=== PATIENT | female | born 1985 | race Caucasian/White ===

== ENCOUNTER 2017-01-15 01:45 | Emergency (ER) | payer MEDICAID ==
[~2017-01-15] VITALS: Ht 157.5 cm; Wt 68.5 kg
[2017-01-15 01:48] VITALS: Ht 157.5 cm; Wt 68.5 kg
[2017-01-15 03:14] LABS: ADD SCAN DIFF NO
[2017-01-15 03:16] LABS: ADD UMIC YES; BASOPHILS % 0.4 % (0.0-2.0); EOSINOPHILS # 0.3 10^3/ul (0.0-0.5); HEMATOCRIT 38.7 % (37.0-47.0); HEMOGLOBIN 12.5 g/dl (12.0-16.0); LYMPHOCYTES # 2.6 10^3/ul (0.8-2.9); LYMPHOCYTES % 25.5 % (15.0-51.0); MEAN CORPUSCULAR HEMOGLOBIN 28.8 pg (29.0-33.0); MEAN CORPUSCULAR HGB CONC 32.3 g/dl (32.0-37.0); MEAN CORPUSCULAR VOLUME 89.2 fl (82.0-101.0); MONOCYTE # 0.7 10^3/ul (0.3-0.9); MONOCYTES % 6.7 % (0.0-11.0); NEUTROPHIL # 6.4 10^3/ul (1.6-7.5); NEUTROPHILS % 64.3 % (39.0-77.0); PLATELET COUNT 296 10^3/UL (140-415); RED BLOOD COUNT 4.34 10^6/ul (4.20-5.40); RED CELL DISTRIBUTION WIDTH 13.9 % (11.5-14.5); URINE BILIRUBIN (Dip) NEGATIVE (NEGATIVE); URINE BLOOD (Dip) 2+ (NEGATIVE); URINE COLOR LT. YELLOW (YELLOW); URINE GLUCOSE (Dip) NEGATIVE (NEGATIVE); URINE KETONES (Dip) NEGATIVE (NEGATIVE); URINE LEUKOCYTE ESTERASE (Dip) NEGATIVE (NEGATIVE); URINE NITRITE (Dip) NEGATIVE (NEGATIVE); URINE TOTAL PROTEIN (Dip) NEGATIVE (NEGATIVE); URINE UROBILINOGEN (Dip) 0.2 E.U./dL (0.1-1.0)
[2017-01-15 03:34] LABS: SQUAMOUS EPITHELIAL CELL,UR RARE; URINE RBCS 0-2 /HPF ([, 0])
--- NOTE | 2017-01-15 04:33 | RADRPT ---
PROCEDURE: Obstetrical ultrasound. CLINICAL INDICATION: Vaginal bleeding. TECHNIQUE: Multiple sonographic images of the pelvis were obtained utilizing a transabdominal and endovaginal technique. The images were reviewed on a PACS workstation. COMPARISON: None. FINDINGS: The uterus is visualized and measures 9.4 x 6.0 x 6.6 cm. No abnormal uterine mass is identified. T he endometrial echo complex is homogeneous and measures 18.4 mm. No intrauterine is identi fied. There is no abnormal flow to suggest retained products. There is no evidence for free fluid. The right ovary has a normal echotexture and measures 2.9 x 1. 8 x 1.7 cm. The left ovary has a normal echotexture and measures 3.0 x 2.1 x 1.6 cm. There is norm al flow to both ovaries. No adnexal masses are identified. IMPRESSION: Thickened endometrium with no evidence of intrauterine or retained products. Clinical beta -hCG correlation and follow-up is recommended. .Ebenezer Moody MD, Date Time Electronically viewed and signed by .Ebenezer Moody MD, MD on 01/15/2017 04:32 .T/
[2017-01-15] MEDS ORDERED: ACET325T33 PO (05:31)
[2017-01-15] MEDS ORDERED: ONDA4TAB8 PO (05:31)
[2017-01-15] MEDS ORDERED: HYDR-906 PO (05:31)
[2017-01-15] MEDS ORDERED: ONDANSETRON (ODT) 4 MG TAB ODT STA (05:34)
[2017-01-15] MEDS ORDERED: ACETAMINOPHEN 325 MG TAB PO ONE (06:00)
--- NOTE | 2017-01-15 10:24 | ERD ---
ER Documentation Chief Complaint Date/Time DATE: 01/15/17 TIME: 10:09 Chief Complaint 6 wks , vag bleeding x 4 days HPI This is a 31 year old female who is 6 weeks , presents to the ED with vaginal bleed and lower abdominal and back pain for 2 days. Pt has passed clots and bright red blood for 4 pads per day. Pt describes the pain as gradual and intermittent. 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 Pt is with both vaginal deliveries and LMP was Nov 13. Pt does not take any medications. Denies trauma, fever, nausea, vomiting, chest pain, dysuria, diarrhea or constipation. No recent sick contacts or foreign travel. ROS All systems reviewed and are negative except as per history of present illness. Medications Home Meds Active Scripts Hydrocodone/Acetaminophen (Alvo 5-325 Tablet) 1 Each Tablet, 1 TAB PO Q6H Y for PAIN, #10 TAB Prov:JESSE MORRELL 01/15/17 Ondansetron Hcl* (Zofran*) 4 Mg Tablet, 4 MG PO Q6H for NAUSEA AND/OR VOMITING, #30 TAB Prov:JESSE MORRELL 01/15/17 Acetaminophen* (Tylenol*) 325 Mg Tablet, 2 TAB PO Q6 Y for PAIN AND OR ELEVATED TEMP, #20 TAB Prov:JESSE MORRELL 01/15/17 Allergies Allergies: Coded Allergies: No Known Allergy (Unverified , 10/23/14) PMhx/Soc Medical and Surgical Hx: pt denies Medical Hx, pt denies Surgical Hx Hx Alcohol Use: No Hx Substance Use: No Hx Tobacco Use: No Smoking Status: Never smoker Physical Exam Vitals Vital Signs Date Time Temp Pulse Resp B/P Pulse Ox O2 Delivery O2 Flow Rate FiO2 01/15/17 01:48 98.3 79 20 112/63 100 Physical Exam Physical Exam CONST: Well-developed, well-nourished, in no acute distress. Nontoxic in appearance. HEENT: Atraumatic. Normal conjunctiva. EOM intact. TM intact. External ear is normal. Clear oropharnyx without erythema. No uvular deviation. Moist mucous membranes. Supple neck. No meningismus. No submandibular induration. RESP: Clear to auscultation bilaterally. No wheezing. CARDIO: Regular rate and rhythm, no murmurs. ABD: Diffuse tenderness on the lower abdomen that radiates to the back. Normal bowel sounds. No guarding or rigidity. No peritoneal signs. SKIN: No petechiae or rashes. BACK: No midline or flank tenderness. EXT: No cyanosis or edema. Distal pulses equal and bilateral. NEURO: Awake and alert, appropriate for age. 5/5 strength in all extremities. Normal speech. Steady gait. Result Diagram: 01/15/17 0300 Results 24 hrs Laboratory Tests Test 01/15/17 03:00 White Blood Count 10.010^3/ul Red Blood Count 4.3410^6/ul Hemoglobin 12.5g/dl Hematocrit 38.7% Mean Corpuscular Volume 89.2fl Mean Corpuscular Hemoglobin 28.8pg Mean Corpuscular Hemoglobin Concent 32.3g/dl Red Cell Distribution Width 13.9% Platelet Count 20891^3/UL Mean Platelet Volume 11.0fl Neutrophils % 64.3% Lymphocytes % 25.5% Monocytes % 6.7% Eosinophils % 3.0% Basophils % 0.4% Nucleated Red Blood Cells % 0.0/100WBC Neutrophils # 6.410^3/ul Lymphocytes # 2.610^3/ul Monocytes # 0.710^3/ul Eosinophils # 0.310^3/ul Basophils # 0.010^3/ul Nucleated Red Blood Cells # 0.010^3/ul Urine Color LT. YELLOW Urine Clarity CLEAR Urine pH 6.5 Urine Specific [place] <=1.005 Urine Ketones NEGATIVE Urine Nitrite NEGATIVE Urine Bilirubin NEGATIVE Urine Urobilinogen 0.2 E.U./dL Urine Leukocyte Esterase NEGATIVE Urine Microscopic RBC 0-2/HPF Urine Microscopic WBC NONE SEEN/HPF Urine Squamous Epithelial Cells RARE Urine Hemoglobin 2+ Urine Glucose NEGATIVE% Urine Total Protein NEGATIVE Beta HCG, Quantitative 11705.0mIU/ml Current Medications Medications (Trade) Dose Ordered Sig/Deepa Route PRN Reason Start Time Stop Time Status Last Admin Dose Admin Acetaminophen (Tylenol Tab) 650 mg ONCE ONCE PO 01/15/17 06:00 01/15/17 06:01 DC 01/15/17 05:46 Ondansetron HCl (Zofran Odt) 4 mg ONCE STAT ODT 01/15/17 05:34 01/15/17 05:35 DC 01/15/17 05:46 PROCEDURE: Obstetrical ultrasound. CLINICAL INDICATION: Vaginal bleeding. TECHNIQUE: Multiple sonographic images of the pelvis were obtained utilizing a transabdominal and endovaginal technique. The images were reviewed on a PACS workstation. COMPARISON: None. FINDINGS: The uterus is visualized and measures 9.4 x 6.0 x 6.6 cm. No abnormal uterine mass is identified. The endometrial echo complex is homogeneous and measures 18.4 mm. No intrauterine is identified. There is no abnormal flow to suggest retained products. There is no evidence for free fluid. The right ovary has a normal echotexture and measures 2.9 x 1.8 x 1.7 cm. The left ovary has a normal echotexture and measures 3.0 x 2.1 x 1.6 cm. There is normal flow to both ovaries. No adnexal masses are identified. IMPRESSION: Thickened endometrium with no evidence of intrauterine or retained products. Clinical beta-hCG correlation and follow-up is recommended. .Ebenezer Moody MD, MD Date Time Electronically viewed and signed by .Ebenezer Moody MD, on 01/15/2017 04:32 Procedures/[facility] EMERGENCY DEPARTMENT COURSE/MEDICAL DECISION MAKING This is a 31 year old female who comes to the emergency room secondary to complaints of vaginal bleeding and lower abdominal/back pain x2 days. The patient was given tylenol and zofran in the department. On re-evaluation, the patient's symptoms improved. CBC, beta HCG [place] [address] with +2 blood on urine. Pt is not anemic and does not require transfusion. US OB was ordered and was interpreted by a radiologist. Results shows thickened endometrium with no evidence of intrauterine or retained products. Given the US result and beta HCG level, I suspect that the patient had a miscarriage/complete . Serial HCG follow-up is recommended. My primary diagnosis is vaginal bleed. Secondary diagnosis abdominal pain Differential diagnoses considered but not limited to normal IUP, complete , ovarian torsion, UTI, ectopic . Pt is hemodynamically stable upon reassessment. There are no new complaints during the ED course. The patient was discharged for outpatient management with a prescription for norco, tylenol and zofran. The patient was advised to followup with her [employer] in 2 days for serial HCG draw. Pt was also instructed and to return to the Emergency Department if there are any new or worsening symptoms. The patient understood and agreed with the diagnosis, treatment and plan. Patient is stable for discharge at this time. Departure Diagnosis: Primary Impression: Vaginal bleeding Additional Impression: Abdominal pain Abdominal location: lower abdomen, unspecified Qualified Code: R10.30 - Lower abdominal pain Condition: Stable Patient Instructions: Abdominal Pain, Early Referrals: [facility] Usted se minor hecho un examen mdico de control que le indica que no est en ron condicin que requiera tratamiento urgente en el Departamento de Emergencia. Un estudio ms profundo y el tratamiento de desir condicin pueden esperar sin ningn riesgo hasta que usted sea atendida/o en el consultorio de desir mdico o ron cl lacey. Es responsabilidad suya arreglar ron stacie para el seguimiento del gio. MANEJO DE CONDICIONES NO URGENTES EN EL FUTURO 1) Si usted tiene un mdico de atencin primaria: Usted debera llamar a desir mdico de atencin primaria antes de venir al departamento de emergencia. Despus de las horas de consultorio, desir doctor o desir asociado/a est disponible por telfono. El mdico o enfermero de dagoberto en el servicio telefnico puede asesorarle por garcia medio para atender el problema, o gio contrario se puede programar ron stcaie. 2) Si usted no tiene un mdico de atencin primaria: Llame al mdico o clnica de referencia que aparece abajo mary las horas de consultorio para hacer ron stacie para que le vean. CLINICAS: [facility] 325 [phone] [address] [facility] 969 [phone] [address] [facility] 269 [phone] [facility] [phone] [address] [facility] [place] [id number] [phone] [facility]. [phone] [address] [facility]. [facility] () Usmegha se minor hecho un examen mdico de control que le indica que no est en ron condicin que requiera tratamiento urgente en el Departamento de Emergencia. Un estudio ms profundo y el tratamiento de desir condicin pueden esperar sin ningn riesgo hasta que usted sea atendida/o en el consultorio de desir mdico o ron cl lacey. Es responsabilidad suya arreglar ron stacie para el seguimiento del gio. MANEJO DE CONDICIONES NO URGENTES EN EL FUTURO 1) Si usted tiene un mdico de atencin primaria: Usted debera llamar a desir mdico de atencin primaria antes de venir al departamento de emergencia. Despus de las horas de consultorio, desir doctor o desir asociado/a est disponible por telfono. El mdico o enfermero de dagoberto en el servicio telefnico puede asesorarle por garcia medio para atender el problema, o gio contrario se puede programar ron stacie. 2) Si usted no tiene un mdico de atencin primaria: Llame al mdico o condado institucions de referencia que aparece abajo mary las horas de consultorio para hacer ron stacie para que le vean. SI USTED NO PUEDE PAGAR PARA SAUD UN MEDICO puede ir a: [facility] [address] [place] [address] [facility] [address] [place] [address] [facility] [address] [place] [address] [facility] [address] [place] [address] [employer] [address] [facility] [address] [place] [address] OFFICE FAX , JUDITH [address] [place] [address] [address], [place] [address] [place] [address] [address] MOHR, [facility] [address], [facility] [address] [address] [facility] [address] [place] [address] [facility] [address] [place] [address] [facility] [address] [address] KENNEY, DESIREE [address], [facility] [address] [address] HUTCHINSON, CARLOS [address] [facility]. [address], [place] [address] [address] MONREAL, FARID [address] [place], [place] [id number] Additional Instructions: Saud a un especialista en Obstetricia y Ginecologa en 2 jewell y la solicitud de ivette beta HCG dibujar Llame a desir mdico de atencin primaria maana para hacer ron stacie mary los pr ximos jewell 1-2. Volver a ED para la aparicin o empeoramiento de sntomas [facility] todos los medicamentos daquan lo indique. JESSE MORRELL Jan 15, 2017 10:19
== END 2017-01-15 05:53 | disposition home or self-care (01) ==
LOC: FTE 01:45
DX: O20.9 Hemorrhage in early pregnancy, unspecified (principal); O26.891 Other specified pregnancy related conditions, first trimester; R10.30 Lower abdominal pain, unspecified; Z3A.01 Less than 8 weeks gestation of pregnancy
CPT/HCPCS: 76801; 76817; 81001; 84702; 85025; 86900; 86901; Z7610; 36415; 81003

== ENCOUNTER 2017-01-18 22:17 | Emergency (ER) | payer MEDICAID ==
[~2017-01-18] VITALS: Ht 165.1 cm; Wt 67.5 kg
[~2017-01-18 22:17] MED LIST: ACET325T33 PO; HYDR-906 PO; ONDA4TAB8 PO
[2017-01-18 22:23] VITALS: Ht 165.1 cm; Wt 67.5 kg
[2017-01-18] MEDS ORDERED: POLY17PO6 PO (23:42)
--- NOTE | 2017-01-18 23:51 | ERD ---
ER Documentation Chief Complaint Date/Time DATE: 01/18/17 TIME: 23:45 Chief Complaint constipation after taking norco HPI 31-year-old female presents here in emergency department for complaints of constipation after taking Dayton. Patient denies any abdominal pain, nausea or vomiting. Patient is taking Narco because of present miscarriage. Patient last bowel movement was 2 days ago, was hard stools, stridor or should defecate but is having trouble pushing out the stool. Patient denies any abdominal pain or flank pain at this time. Patient denies any rectal pain. Patient denies any fever or chills. ROS All systems reviewed and are negative except as per history of present illness. Medications Home Meds Active Scripts Polyethylene Glycol* (Miralax*) 17 Gm Powd.pack, 17 GM PO DAILY, #7 Prov:BELEN VALDIVIA NP 01/18/17 Hydrocodone/Acetaminophen (Dayton 5-325 Tablet) 1 Each Tablet, 1 TAB PO Q6H Y for PAIN, #10 TAB Prov:JESSE MORRELL 01/15/17 Ondansetron Hcl* (Zofran*) 4 Mg Tablet, 4 MG PO Q6H for NAUSEA AND/OR VOMITING, #30 TAB Prov:JESSE MORRELL 01/15/17 Acetaminophen* (Tylenol*) 325 Mg Tablet, 2 TAB PO Q6 Y for PAIN AND OR ELEVATED TEMP, #20 TAB Prov:JESSE MORRELL 01/15/17 Allergies Allergies: Coded Allergies: No Known Allergy (Unverified , 10/23/14) PMhx/Soc Medical and Surgical Hx: pt denies Medical Hx, pt denies Surgical Hx Hx Alcohol Use: No Hx Substance Use: No Hx Tobacco Use: No FmHx Family History: No coronary disease, No diabetes, No other Physical Exam Vitals Vital Signs Date Time Temp Pulse Resp B/P Pulse Ox O2 Delivery O2 Flow Rate FiO2 01/18/17 22:23 99.0 84 20 107/59 98 Physical Exam GENERAL: The patient is well developed and appropriate for usual state of health, in no apparent distress. CHEST: Clear to auscultation bilaterally. There are no rales, wheezes or rhonchi. HEART: Regular rate and rhythm. No murmurs, clicks, rubs or gallops. No S3 or S4. ABDOMEN: Soft, nontender and nondistended. Good bowel sounds. No rebound or guarding. No gross peritonitis. No gross organomegaly or masses. No Pizano sign or McBurney point tenderness. BACK: No midline or flank tenderness. EXTREMITIES: Equal pulses bilaterally. There is no peripheral clubbing, cyanosis or edema. No focal swelling or erythema. Full range of motion. Grossly neurovascularly intact. NEURO: Alert and oriented. Cranial nerves 2-12 intact. Motor strength in all 4 extremities with 5/5 strength. Sensation grossly intact. Normal speech and gait. SKIN: There is no apparent rash or petechia. The skin is warm and dry. HEMATOLOGIC AND LYMPHATIC: There is no evidence of excessive bruising or lymphedema. No gross cervical, axillary, or inguinal lymphadenopathy. Procedures/MDM Medical Decision Making: Patient symptoms is likely consistent with constipation. No suspicion of bowel obstruction, last bowel movement was 2 days ago, not vomiting, she does not complain of abdominal pain. There is low suspicion for abdominal emergencies at this time. Patients abdominal exam is normal at this time. Radiology exam is not indicated at this time. There is low suspicion for appendicitis, cholecystitis, abdominal aortic aneurysms or peritonitis at this time. There is low suspicion for sepsis. Patient appears well and is hemodynamically stable. Disposition: Home. Condition: Stable Prescription MiraLAX Instructions: Patient is advised to take medications as prescribed. Patient is advised to rest, increase fluid intake and do high fiber diet for next 1-2 days and progress as tolerated. Patient is advised that if symptoms are worse, severe abdominal pain, uncontrolled vomiting, high fever, severe flank pain, worst signs and symptoms, to return to the emergency department immediately. Otherwise, patient can follow up with primary care doctor in 5-7 days. Departure Diagnosis: Primary Impression: Constipation Constipation type: unspecified constipation type Qualified Code: K59.00 - Constipation, unspecified constipation type Condition: Stable Patient Instructions: Constipation (Adult) BELEN VALDIVIA NP Jan 18, 2017 23:51
== END 2017-01-19 00:05 | disposition home or self-care (01) ==
LOC: FTE 22:17
DX: K59.00 Constipation, unspecified (principal)
CPT/HCPCS: 99283

== ENCOUNTER 2017-04-03 18:00 | Emergency (ER) | payer MEDICAID ==
[~2017-04-03] VITALS: Ht 157.5 cm; Wt 79.0 kg
[~2017-04-03 18:00] MED LIST changes: +POLY17PO6 PO
[2017-04-03 18:08] VITALS: Ht 157.5 cm; Wt 79.0 kg
[2017-04-03] MEDS ORDERED: SOD CHLORIDE 0.9% 1,000 ML IV STA (18:33)
[2017-04-03] MEDS ORDERED: morphine 4 MG/ML VIAL IV STA (18:33)
[2017-04-03] MEDS ORDERED: ONDANSETRON 4 MG INJ IV STA ×2 (18:33→18:55)
[2017-04-03 18:49] LABS: ADD SCAN DIFF NO
[2017-04-03 18:51] LABS: BASOPHILS % 0.2 % (0.0-2.0); EOSINOPHILS # 0.1 10^3/ul (0.0-0.5); EOSINOPHILS % 0.6 % (0.0-7.0); HEMATOCRIT 38.1 % (37.0-47.0); HEMOGLOBIN 12.9 g/dl (12.0-16.0); LYMPHOCYTES # 1.6 10^3/ul (0.8-2.9); MEAN CORPUSCULAR HEMOGLOBIN 28.5 pg (29.0-33.0); MEAN CORPUSCULAR HGB CONC 33.9 g/dl (32.0-37.0); MEAN CORPUSCULAR VOLUME 84.1 fl (82.0-101.0); MEAN PLATELET VOLUME 11.4 fl (7.4-10.4); MONOCYTE # 0.6 10^3/ul (0.3-0.9); MONOCYTES % 5.6 % (0.0-11.0); NEUTROPHIL # 8.2 10^3/ul (1.6-7.5); NEUTROPHILS % 78.5 % (39.0-77.0); PLATELET COUNT 290 10^3/UL (140-415); RED BLOOD COUNT 4.53 10^6/ul (4.20-5.40); RED CELL DISTRIBUTION WIDTH 13.4 % (11.5-14.5); WHITE BLOOD COUNT 10.4 10^3/ul (4.8-10.8)
[2017-04-03] MEDS ORDERED: HYDROmorphONE 1 MG/ML SYG IV STA (18:55)
[2017-04-03 19:11] LABS: ALBUMIN 5.1 g/dl (3.3-4.9); ALBUMIN/GLOBULIN RATIO 1.37; BILIRUBIN,INDIRECT 0.8 mg/dl (0-1.1); BILIRUBIN,TOTAL 0.8 mg/dl (0.2-1.3); CALCIUM 10.1 mg/dl (8.4-10.2); CREATININE 0.66 mg/dl (0.44-1.00); POTASSIUM 3.6 mmol/L (3.5-5.1); TOTAL PROTEIN 8.8 g/dl (6.1-8.1)
--- NOTE | 2017-04-03 19:15 | ERD ---
ER Documentation Chief Complaint Date/Time DATE: 04/03/17 TIME: 19:13 Chief Complaint AP SINCE THIS AM, HYPERVENTILATING HPI 31-year-old female otherwise healthy comes emergency department with right lower quadrant abdominal pain and pelvic pain that started this morning at approximately 10 AM. She complains of severe pain that is localized in the right lower quadrant, she states that it gradually got worse and up by 2 PM it became severe. She reports it is a pressure-like feeling, nonradiating, nothing makes it better. She denies any fevers, chills, vomiting. ROS All systems reviewed and are negative except as per history of present illness. Medications Home Meds Active Scripts Ciprofloxacin Hcl* (Ciprofloxacin Hcl*) 500 Mg Tablet, 500 MG PO BID for 14 Days , TAB Prov:PER BHATTI PA-C 04/03/17 Docusate Sodium* (Colace*) 100 Mg Capsule, 100 MG PO TID, #30 CAP Prov:PER BHATTI PA-C 04/03/17 Ibuprofen* (Motrin*) 600 Mg Tab, 600 MG PO Q6, #30 TAB Prov:PER BHATTI PA-C 04/03/17 Hydrocodone/Acetaminophen (Placedo 5-325 Tablet) 1 Each Tablet, 1 TAB PO Q6H Y for PAIN, #7 TAB Prov:PER BHATTI PA-C 04/03/17 Tamsulosin Hcl* (Flomax*) 0.4 Mg Cap.er.24h, 0.4 MG PO BID, #30 CAP Prov:PER BHATTI PA-C 04/03/17 Polyethylene Glycol* (Miralax*) 17 Gm Powd.pack, 17 GM PO DAILY, #7 Prov:BELEN VALDIVIA NP 01/18/17 Hydrocodone/Acetaminophen (Placedo 5-325 Tablet) 1 Each Tablet, 1 TAB PO Q6H Y for PAIN, #10 TAB Prov:JESSE MORRELL 01/15/17 Ondansetron Hcl* (Zofran*) 4 Mg Tablet, 4 MG PO Q6H for NAUSEA AND/OR VOMITING, #30 TAB Prov:JESSE MORRELL 01/15/17 Acetaminophen* (Tylenol*) 325 Mg Tablet, 2 TAB PO Q6 Y for PAIN AND OR ELEVATED TEMP, #20 TAB Prov:JESSE MORRELL 01/15/17 Allergies Allergies: Coded Allergies: No Known Allergy (Unverified , 1/25/15) PMhx/Soc Medical and Surgical Hx: pt denies Medical Hx, pt denies Surgical Hx History of Surgery: No ([facility].) Anesthesia Reaction: No Hx Neurological Disorder: No Hx Respiratory Disorders: No Hx Cardiac Disorders: No Hx Psychiatric Problems: No Hx Miscellaneous Medical Probl: No ( miscarriage JANUARY 2017) Hx Alcohol Use: No Hx Substance Use: No Hx Tobacco Use: No Smoking Status: Never smoker Physical Exam Vitals Vital Signs Date Time Temp Pulse Resp B/P Pulse Ox O2 Delivery O2 Flow Rate FiO2 04/03/17 18:08 99.2 64 18 128/78 99 Physical Exam General: Well-developed, well-nourished. The patient appears in no acute distress. HEENT: Head is normocephalic, atraumatic. No scleral icterus. Neck: Supple. Nontender. Lungs: Clear to auscultation. Normal air movement. Heart: Regular rate and rhythm. S1 and S2 are normal. No murmurs, gallops, or rubs. Abdomen: Soft, significant tenderness with palpation on the right lower quadrant , nondistended. Bowel sounds are normoactive. Extremities: No clubbing or cyanosis. Normal pulses. Moving extremities x 4. No weakness. Neurologic: Alert and oriented 3. No focal deficits. Skin: Normal turgor. No rash or lesions. Result Diagram: 04/03/17184404/03/171844 Results 24 hrs Laboratory Tests Test 04/03/17 18:45 04/03/17 19:00 White Blood Count 10.410^3/ul Red Blood Count 4.5310^6/ul Hemoglobin 12.9g/dl Hematocrit 38.1% Mean Corpuscular Volume 84.1fl Mean Corpuscular Hemoglobin 28.5pg Mean Corpuscular Hemoglobin Concent 33.9g/dl Red Cell Distribution Width 13.4% Platelet Count 00264^3/UL Mean Platelet Volume 11.4fl Neutrophils % 78.5% Lymphocytes % 15.0% Monocytes % 5.6% Eosinophils % 0.6% Basophils % 0.2% Nucleated Red Blood Cells % 0.0/100WBC Neutrophils # 8.210^3/ul Lymphocytes # 1.610^3/ul Monocytes # 0.610^3/ul Eosinophils # 0.110^3/ul Basophils # 0.010^3/ul Nucleated Red Blood Cells # 0.010^3/ul Sodium Level 135mmol/L Potassium Level 3.6mmol/L Chloride Level 101mmol/L Carbon Dioxide Level 26mmol/L Anion Gap 12 Blood Urea Nitrogen 14mg/dl Creatinine 0.66mg/dl Glucose Level 119mg/dl Calcium Level 10.1mg/dl Total Bilirubin 0.8mg/dl Direct Bilirubin 0.00mg/dl Indirect Bilirubin 0.8mg/dl Aspartate Amino Transf (AST/SGOT) 21IU/L Alanine Aminotransferase (ALT/SGPT) 25IU/L Alkaline Phosphatase 80IU/L Total Protein 8.8g/dl Albumin 5.1g/dl Globulin 3.70g/dl Albumin/Globulin Ratio 1.37 Lipase 86U/L Urine Color MARTIN Urine Clarity SLIGHTLY CLOUDY Urine pH 9.0 Urine Specific Salix 1.019 Urine Ketones 1+mg/dL Urine Nitrite POSITIVEmg/dL Urine Bilirubin NEGATIVEmg/dL Urine Urobilinogen 2+mg/dL Urine Leukocyte Esterase NEGATIVELeu/ul Urine Microscopic RBC > 182/HPF Urine Microscopic WBC 0/HPF Urine Squamous Epithelial Cells FEW/HPF Urine Mucus FEW/HPF Urine Hemoglobin 3+mg/dL Urine Glucose NEGATIVEmg/dL Urine Total Protein 2+mg/dl Current Medications Medications (Trade) Dose Ordered Sig/Deepa Route PRN Reason Start Time Stop Time Status Last Admin Dose Admin Sodium Chloride (NS) 1,000 ml @ 1,000 mls/hr Q1H STAT IV 04/03/17 18:33 04/03/17 19:32 DC 04/03/17 18:52 Morphine Sulfate (morphine) 4 mg ONCE STAT IV 04/03/17 18:33 04/03/17 18:35 DC 04/03/17 18:53 Ondansetron HCl (Zofran Inj) 4 mg ONCE STAT IV 04/03/17 18:33 04/03/17 18:35 DC 04/03/17 18:52 Hydromorphone HCl (Dilaudid) 1 mg ONCE STAT IV 04/03/17 18:55 04/03/17 18:56 DC 04/03/17 19:11 Ondansetron HCl (Zofran Inj) 4 mg ONCE STAT IV 04/03/17 18:55 04/03/17 18:56 DC 04/03/17 19:10 Tamsulosin HCl (Flomax) 0.4 mg ONCE ONCE PO 04/03/17 20:30 04/03/17 20:31 DC 04/03/17 20:41 Ketorolac Tromethamine (Toradol) 30 mg ONCE STAT IV 04/03/17 20:08 04/03/17 20:09 DC 04/03/17 20:24 DIAGNOSTIC IMAGING REPORT Patient: CLIFFORD PAYAN : 1985 Age: 31 Sex: F MR #: [id number] DOS: 04/03/17 1833 Ordering MD: PER BHATTI PA-C Location: [facility] Room/Bed: PROCEDURE: US Pelvis. CLINICAL INDICATION: 31-year-old female with right-sided pelvic pain. TECHNIQUE: Multiple sonographic images of the pelvis were obtained utilizing a transabdominal and endovaginal technique. The images were reviewed on a PACS workstation. COMPARISON: CT scan abdomen pelvis April 03, 2017. FINDINGS: The uterus is visualized and measures a 0.7 cm sagittal by 4.7 cm AP by 5.6 cm transverse. The endometrial echo complex is normal and measures 4.1 mm. There is no evidence for free fluid. The right ovary has a normal echotexture and measures 3.2 x 1.6 by 2.1 cm . The left ovary has a normal echotexture and measures 3.2 x 2.2 by 2.8 cm. No free fluid is noted in the pelvis. No adnexal masses are noted. There is normal blood flow on Doppler imaging to both ovaries. IMPRESSION: Unremarkable pelvic ultrasound. RPTAT:AAJJ Physician Mal Date Time Electronically viewed and signed by Physician Mal on 04/03/2017 20:07 JM/ CC: PER BHATTI PA-C DIAGNOSTIC IMAGING REPORT Patient: CLIFFORD PAYAN : 1985 Age: 31 Sex: F MR #: [id number] DOS: 04/03/17 1833 Ordering MD: PER BHATTI PA-C Location: [facility] Room/Bed: PROCEDURE: CT abdomen and pelvis without IV contrast. CLINICAL INDICATION: Right pelvic pain TECHNIQUE: CT scan of the abdomen and pelvis without contrast was performed on the [employer] volumetric [address] scanner. The patient was scanned without intravenous contrast. Coronal and sagittal reformatted images were obtained from the axial source images. The CTDI vol is 10.82 mGy and the DLP is 589.8 mGy -cm. COMPARISON: None. FINDINGS: CT abdomen: The lung bases are clear. The heart size is not enlarged and is without pericardial thickening or effusion. The liver is normal in size and density and is without focal mass or intrahepatic biliary dilatation. The spleen is normal in size and homogeneous in density. The stomach is grossly unremarkable. The pancreas as visualized is normal. The gallbladder and biliary tree are unremarkable and there is no evidence for common bile duct dilatation. The adrenal glands are symmetric and normal. The kidneys are normal in size. Moderate right hydroureteronephrosis is seen which appears to be secondary to a 4 mm obstructing calculus in the distal right ureter. Small nonobstructing calculi in the lower pole of the right kidney is also seen measuring 1-2 mm in size. No left renal calculus or left-sided obstructive uropathy or mass lesion is seen. The aorta is of normal in caliber. There is no retroperitoneal lymphadenopathy. The rickey hepatis region is clear. The large bowel is stool- filled. The small and large bowel and mesentery, as visualized, are otherwise unremarkable. The normal appendix is identified. CT pelvis: The pelvic organs are normal. The pelvic sidewalls and inguinal regions are clear. No pelvic mass, lymphadenopathy, or free fluid is seen. No acute inflammation is seen. The urinary bladder is within normal limits. The surrounding osseous structures are unremarkable. No osteolytic or osteoblastic lesion is detected. IMPRESSION: 1. Moderate right hydroureteronephrosis which appears to be secondary to a 4 mm obstructing calculus in the distal right ureter. 2. Small nonobstructing right renal calculi. 3. Stool filled large bowel. RPTAT: HPNM Matt Vega Physician Date Time Electronically viewed and signed by Matt Vega Physician on 04/03/2017 19 :52 / CC: PER BHATTI PA-C Procedures/[facility] ED course: Patient had an IV line established, she was given morphine 4 mg, Zofran 4 mg IV and a fluid bolus of normal saline 1 L. Patient did not have any improvement of pain and therefore was given Dilaudid 1 mg and Zofran 4 mg IV. She stated that she is feeling much better. CT abdomen pelvis shows a kidney stone, and was she was then given Toradol 30 mg IV as well as Flomax by mouth. Reexamination of the patient showed that she was standing, smiling and free of any pain. Medical decision making: This is a 31-year-old female presents with acute right- sided pelvic pain, patient's abdominal pain can be explained by a 4 mm kidney stone in the UVJ, with moderate hydronephrosis. She also has renal stones that are not causing any symptoms. Patient's workup included labs and a urine, urine does show nitrite positive urine. However she does not have any leukocytosis, febrile illness. She does not have a systemic findings for infection. This was discussed with my attending physician who agrees that the patient can be treated outpatient with Cipro. She is to follow-up with the urologist, she was given information to follow-up with referrals. Departure Diagnosis: Primary Impression: Ureterolithiasis Additional Impression: UTI (urinary tract infection) Condition: Good PER BHATTI PA-C Apr 03, 2017 19:15
[2017-04-03 19:35] LABS: ADD UMIC YES; UR ASCORBIC ACID NEGATIVE (NEGATIVE); UR BILIRUBIN (Dip) NEGATIVE (NEGATIVE); UR BLOOD (Dip) 3+ mg/dL (NEGATIVE); UR CLARITY SLIGHTLY CLOUDY (CLEAR); UR COLOR AMBER (YELLOW); UR GLUCOSE (Dip) NEGATIVE (NEGATIVE); UR KETONES (Dip) 1+ mg/dL (NEGATIVE); UR LEUKOCYTE ESTERASE (Dip) NEGATIVE Leu/ul (NEGATIVE); UR MUCUS FEW /HPF (NONE SEEN); UR NITRITE (Dip) POSITIVE (NEGATIVE); UR RBC > 182 /HPF (0-5); UR SPECIFIC GRAVITY (Dip) 1.019 (1.003-1.030); UR SQUAMOUS EPITHELIAL CELL FEW /HPF (FEW); UR TOTAL PROTEIN (Dip) 2+ mg/dl (NEGATIVE); UR UROBILINOGEN (Dip) 2+ mg/dL (NEGATIVE)
--- NOTE | 2017-04-03 19:52 | RADRPT ---
PROCEDURE: CT abdomen and pelvis without IV contrast. CLINICAL INDICATION: Right pelvic pain TECHNIQUE: CT scan of the abdomen and pelvis without contrast was performed on the [employer] ([employer]) volumetric [address] scanner. The patient was scanned without intravenous contrast. Coronal and sagittal refo rmatted images were obtained from the axial source images. The CTDI vol is 10.82 mGy and the DLP is 589.8 mGy-cm. COMPARISON: None. FINDINGS: CT abdomen: The lung bases are clear. The heart size is not enlarged and is without pericardial thickening or e ffusion. The liver is normal in size and density and is without focal mass or intrahepatic biliary dilatation . The spleen is normal in size and homogeneous in density. The stomach is grossly unremarkable. T he pancreas as visualized is normal. The gallbladder and biliary tree are unremarkable and there is no evidence for common bile duct dilatation. The adrenal glands are symmetric and normal. The kid neys are normal in size. Moderate right hydroureteronephrosis is seen which appears to be secondary to a 4 mm obstructing calculus in the distal right ureter. Small nonobstructing calculi in the low er pole of the right kidney is also seen measuring 1-2 mm in size. No left renal calculus or left- sided obstructive uropathy or mass lesion is seen. The aorta is of normal in caliber. There is no retroperitoneal lymphadenopathy. The rickey hepatis region is clear. The large bowel is stool-filled. The small and large bowel and mesentery, as visua lized, are otherwise unremarkable. The normal appendix is identified. CT pelvis: The pelvic organs are normal. The pelvic sidewalls and inguinal regions are clear. No pelvic mass, lymphadenopathy, or free fluid is seen. No acute inflammation is seen. The urinary bladder is wit hin normal limits. The surrounding osseous structures are unremarkable. No osteolytic or osteoblastic lesion is detect ed. IMPRESSION: 1. Moderate right hydroureteronephrosis which appears to be secondary to a 4 mm obstructing calculu s in the distal right ureter. 2. Small nonobstructing right renal calculi. 3. Stool filled large bowel. RPTAT: HPNM Matt Mogannam, Physician Date Time Electronically viewed and signed by Matt Vega, Physician on 04/03/2017 19:52 /
[2017-04-03] MEDS ORDERED: KETOROLAC 30 MG INJ IV STA (20:08)
--- NOTE | 2017-04-03 20:08 | RADRPT ---
PROCEDURE: US Pelvis. CLINICAL INDICATION: 31-year-old female with right-sided pelvic pain. TECHNIQUE: Multiple sonographic images of the pelvis were obtained utilizing a transabdominal and endovaginal technique. The images were reviewed on a PACS workstation. COMPARISON: CT scan abdomen pelvis April 03, 2017. FINDINGS: The uterus is visualized and measures a 0.7 cm sagittal by 4.7 cm AP by 5.6 cm transverse. The endom etrial echo complex is normal and measures 4.1 mm. There is no evidence for free fluid. The right ov mira has a normal echotexture and measures 3.2 x 1.6 by 2.1 cm . The left ovary has a normal echotex ture and measures 3.2 x 2.2 by 2.8 cm. No free fluid is noted in the pelvis. No adnexal masses are noted. There is normal blood flow on Doppler imaging to both ovaries. IMPRESSION: Unremarkable pelvic ultrasound. RPTAT:AAJJ Physician Mal Date Time Electronically viewed and signed by Physician Mal on 04/03/2017 20:07 ELIZABETH/
[2017-04-03] MEDS ORDERED: IBUP-1542 PO (20:10)
[2017-04-03] MEDS ORDERED: DOCU-144 PO (20:10)
[2017-04-03] MEDS ORDERED: TAMS-14 PO (20:10)
[2017-04-03] MEDS ORDERED: HYDR-906 PO (20:10)
[2017-04-03] MEDS ORDERED: CIPR500T4 PO (20:21)
[2017-04-03] MEDS ORDERED: TAMSULOSIN (SR) 0.4 MG CAP PO ONE (20:30)
== END 2017-04-03 20:47 | disposition home or self-care (01) ==
LOC: FTE 18:00
DX: N20.1 Calculus of ureter (principal); N39.0 Urinary tract infection, site not specified; R10.2 Pelvic and perineal pain
CPT/HCPCS: 36415; 74176; 76830; 76856; 80053; 81001; 83690; 85025; 96374; 96375; 96376; J1170; J1885; J2270; J2405; J7030; Z7502; Z7610

== ENCOUNTER 2018-12-27 12:34 | Inpatient (IN) | payer MEDICAID ==
[~2018-12-27] VITALS: Ht 144.8 cm; Wt 78.0 kg
[~2018-12-27 12:34] MED LIST changes: +CIPR500T4 PO; +DOCU-144 PO; +HYDR-4011 PO; -HYDR-906 PO; +IBUP-1542 PO; +TAMS-14 PO
--- NOTE | 2018-12-27 12:35 | NSTRPT ---
NST Information Datetime Report Generated by CPN: 12/27/2018 12:35 Datetime: 12/17/2018 09:26 NST Information EGA: 38.2 Test Number: 8 Time on Monitor: 12/17/2018 09:55 Time off Monitor: 12/17/2018 10:21 NST Duration (Min): 26 Reason for NST: Low NAEEM Test and Monitor Explained: Monitor Explained; Test Explained; Verbalized Understanding Pulse: 82 Resp: 18 SBP: 109 DBP: 58 Test Evaluation NST Interventions: None Patient States Movement: Present Contraction Frequency: NONE FHR Baseline : 135 Variability: Moderate 6-25bpm Accelerations: 15X15 Decelerations: None FHR Category: Category I NST Results: Reactive Comments: to US VASYL 13. CEPHALIC Electronically Signed By E-Signature: with User ID: [id number] Datetime: 12/14/2018 09:13 NST Information EGA: 37.6 NST Duration (Min): 22 Datetime: 12/03/2018 09:20 NST Information EGA: 36.2 NST Duration (Min): 33 Datetime: 11/30/2018 09:13 NST Information EGA: 35.6 NST Duration (Min): 28 Datetime: 11/20/2018 09:19 NST Information EGA: 34.3 NST Duration (Min): 30 Datetime: 11/18/2018 09:04 NST Information EGA: 34.1 NST Duration (Min): 25 Datetime: 11/13/2018 09:25 NST Information EGA: 33.3 NST Duration (Min): 37 Datetime: 11/10/2018 10:52 NST Information EGA: 33.0 NST Duration (Min): 30
[2018-12-27 12:42] VITALS: Ht 144.8 cm; Wt 78.0 kg
[2018-12-27] MEDS ORDERED: PREN-93 PO (12:43)
[2018-12-27] MEDS ORDERED: OXYTOCIN 30 UNITS/LR 500 ML IV PRN (15:00)
[2018-12-27] MEDS ORDERED: CARBOPROST 250 MCG INJ IM PRN (15:00)
[2018-12-27] MEDS ORDERED: MISOPROSTOL 200 MCG TAB PR PRN (15:00)
[2018-12-27] MEDS ORDERED: BUTORPHANOL 2 MG INJ IV PRN (15:00)
[2018-12-27] MEDS ORDERED: LIDOCAINE 1% (MPF) 30 ML INJ INJ PRN (15:00)
[2018-12-27] MEDS ORDERED: METHYLERGONOVINE 0.2 MG INJ IM PRN (15:00)
[2018-12-27] MEDS ORDERED: OXYTOCIN 30 UNITS/LR 500 ML IV SCH ×3 (15:00)
[2018-12-27] MEDS: LACTATED RINGER'S 1,000 ML IV SCH ×3 (15:25→20:16)
--- NOTE | 2018-12-27 15:41 | PREAC ---
Date/Time of Note Date/Time of Note DATE: 12/27/18 TIME: 15:40 Anesthesia Eval and Record Evaluation Time Pre-Procedure Interview DATE: 12/27/18 TIME: 15:40 Age 33 Sex female NPO: 8 hrs Preoperative diagnosis Planned procedure labor epidural Past Medical History Past Medical History: None Surgery & Anesthesia Issues No known issue Meds Anticoagulation: No Beta Oh within 24 hr: No Reason Beta Oh not given: Pt. not on B-Oh Reported Medications Vit No.124/Iron/FA ( Vitamin Tablet) 1 Each Tablet, 1 EACH PO, TAB 12/27/18 Current Medications Lactated Ringer's 1,000 ml @ 125 mls/hr Q8H IV Last administered on 12/27/18at 15:25; Admin Dose 125 MLS/HR; Start 12/27/18 at 14:42 Butorphanol Tartrate (Stadol) 2 mg Q2H PRN IV .PAIN; Start 12/27/18 at 15:00 Lidocaine (Xylocaine 1% (Mpf)) 30 ml ONCE PRN INJ .EPISIOTOMY; Start 12/27/18 at 15:00 Oxytocin/Lactated Ringer's 500 ml @ 500 mls/hr ONCE POST IV ; Start 12/27/18 at 15:00 Oxytocin/Lactated Ringer's 500 ml @ 125 mls/hr POST IV ; Start 12/27/18 at 15:00 Oxytocin/Lactated Ringer's 500 ml @ 0 mls/hr ONCE PRN IV .VAGINAL BLEEDING; Start 12/27/18 at 15:00 Methylergonovine Maleate (Methergine) 0.2 mg ONCE PRN IM .VAGINAL BLEEDING; Start 12/27/18 at 15:00 Carboprost Tromethamine (Hemabate) 250 mcg ONCE PRN IM .VAGINAL BLEEDING; Start 12/27/18 at 15:00 Misoprostol (Cytotec) 1,000 mcg ONCE PRN CA .VAGINAL BLEEDING; Start 12/27/18 at 15:00 Oxytocin/Lactated Ringer's 500 ml @ 0 mls/hr FOR AUGMENTATION IV ; Start 9 at 15:00 Meds reviewed: Yes Allergies Coded Allergies: No Known Allergy (Unverified , 12/27/18) Allergies Reviewed: Yes Labs/Studies Labs Reviewed: Reviewed by anesthesiologist Result Diagram: 12/27/18 1444 Laboratory Tests 12/27/18 14:44 test: Positive Pre-procedure Exam Airway: Adequate mouth opening, Adequate thyromental dist Mallampati: Mallampati II Teeth: Normal Lung: Normal Heart: Normal ASA Physical Status ASA physical status: 2 Emergency: None Planned Anesthetic Neuraxial: Epidural Pre-operative Attestations Prior to commencing anesthesia and surgery, the patient was re-evaluated, there was verification of: *The patient's identity *The results of appropriate recent lab work and preoperative vital signs *The above evaluation not changing prior to induction *Anesthetic plan, risk benefits, alternative and complications discussed with patient/family; questions answered; patient/family understands, accepts and wishes to proceed. GEORGE PENA Dec 27, 2018 15:41
[2018-12-27] MEDS ORDERED: ONDANSETRON 4 MG INJ IV PRN (16:00)
[2018-12-27] MEDS ORDERED: FENTAnyl 2MCG/ML-ROPIV 0.2% 100 ML BAG EPI SCH (16:00)
[2018-12-27] MEDS ORDERED: DIPHENHYDRAMINE 50 MG INJ IV PRN (16:00)
[2018-12-27] MEDS ORDERED: HYDROmorphONE 0.5 MG/0.5 ML SYG IV PRN ×2 (16:00)
[2018-12-27] MEDS ORDERED: KETOROLAC 30 MG INJ IV PRN (16:00)
[2018-12-27] MEDS ORDERED: NALOXONE (0.4 MG/ML) INJ IV PRN (16:00)
--- NOTE | 2018-12-27 16:42 | PAC ---
Date/Time of Note Date/Time of Note DATE: 12/27/18 TIME: 16:42 Post-Anesthesia Notes Post-Anesthesia Note Activity: WNL Respiratory function: WNL Cardiovascular function: WNL Mental status: Baseline Pain reasonably controlled: Yes Hydration appropriate: Yes Nausea/Vomiting absent: Yes GEORGE PENA Dec 27, 2018 16:42
[2018-12-27] MEDS ORDERED: MINERAL OIL LIGHT 10 ML VIAL TOP ONE (23:30)
[2018-12-28] MEDS: LACTATED RINGER'S 1,000 ML IV SCH (02:12)
--- NOTE | 2018-12-28 03:20 | LDN ---
Date/Time of Note Date/Time of Note DATE: 12/28/18 TIME: 03:16 Delivery Summary vaccum assit vaginal delivery of male due to profound deceleration down to 50's with marginal abruptio Weeks of Gestation 39w6d Assisted Vaginal Delivery: Vacuum (x1 2sec) Placenta Delivered: Spontaneously Meconium: none Episiotomy: No Perineal laceration: 0 Anesthesia type: Epidural Estimated blood loss: 150 Sponge & Needle done & correct: Yes All needle counts correct: Yes Any foreign bodies felt in the: No Infant Delivery Information Sex Infant Sex: male Apgars 1 Minute: 8 5 Minute: 9 Suctioning Nose & mouth suctioned at luisa: Yes Delee suction performed: Yes Umbilical Cord Umbilical cord with: 3 Vessels Cord presentations: no nuchal cord Cord Blood was obtained: Yes Mother & Baby Disposition Disposition Mom & Baby to Maternity; Good: Yes Mom transferred to: Other Baby to NICU: No () BANDAR PANIAGUA MD Dec 28, 2018 03:20
--- NOTE | 2018-12-28 03:39 | HP ---
Date/Time of Note Date/Time of Note DATE: 12/28/18 TIME: 03:26 OB - History Hx of Present Free Text/Dictation 33y.o here at 39w5d with c/o DFM in early labor with intact membrane. EFM CAT I . uc's q3min VE /-2 initial visit was at 9w, low NAEEM-P,son with autism. GBS neg admitted for expectant management,poss pitocin augmentation. Chief Complaint: DFM uc's Estimated Due Date: Dec 30, 2018 : 4 Para: 2 Spontaneous : 0 Therapeutic : 1 Care: Good Care Ultrasounds: Normal mid trimester US Obstetrical Complications: None Medical Complications: None Other Concerns: low NAEEM-A Past Family/Social History * Past Medical, Surgical, Family and Obstetric Histories reviewed from chart. Blood Type: O+ Rubella: immune RPR/VDRL: Negative GBS Status: Negative HBsAG: Negative OB Admission Exam Physical Exam HEENT: WNL Heart: Rhythm Normal Lungs: Clear, Equal Abdomen: WNL Extremities: Normal Reflexes: Normal Cervical Dilatation: 4cm Effacement: Other (70%) Station: -2 Membranes: Intact Amniotic Fluid: Unevaluable Heart Rate: 130's Accelerations: Accelerations Present Decelerations: No Decelerations Varibility: Moderate Contractions on Admission: < 5 Minutes Apart Intensity: Mild Last 72 hours Lab Results CBC & BMP 12/27/18 14:44 OB Assessment/Plan Reason for admission: active labor Other Assessment: IUP 39w5d Plan: Expectant Management, Other (pitocin augmentation) BANDAR PANIAGUA MD Dec 28, 2018 03:36
[2018-12-28 06:00] VITALS: BP 108/57; PULSE 67; RESP 18
[2018-12-28] MEDS: IBUPROFEN 600 MG TAB PO SCH ×4 (06:16→23:18)
[2018-12-28] MEDS ORDERED: OXYTOCIN 30 UNITS/LR 500 ML IV PRN (06:30)
[2018-12-28] MEDS ORDERED: BENZOCAINE 20% 56 ML SPRAY TOP PRN (06:30)
[2018-12-28] MEDS ORDERED: MISOPROSTOL 200 MCG TAB PR PRN (06:30)
[2018-12-28] MEDS ORDERED: CARBOPROST 250 MCG INJ IM PRN (06:30)
[2018-12-28] MEDS ORDERED: OXYCODONE/ASPIRIN (4.88/325) TAB PO PRN (06:30)
[2018-12-28] MEDS ORDERED: ZOLPIDEM 5 MG TAB PO PRN (06:30)
[2018-12-28] MEDS ORDERED: METHYLERGONOVINE 0.2 MG INJ IM PRN (06:30)
[2018-12-28] MEDS ORDERED: LANOLIN HPA 1 PKT TOP PRN (06:30)
[2018-12-28] MEDS ORDERED: WITCH HAZEL/GLYCERIN PAD PR PRN (06:30)
[2018-12-28 08:30] VITALS: BP 104/56; PULSE 74; RESP 20
[2018-12-28] MEDS: SENNA/DOCUSATE NA (8.6MG/50MG) TAB PO SCH ×3 (08:43→23:17)
[2018-12-28] MEDS: OXYCODONE/ASPIRIN (4.88/325) TAB PO PRN ×2 (08:43→09:45)
[2018-12-28 12:25] VITALS: BP 100/65; PULSE 76; RESP 16
[2018-12-28 20:30] VITALS: BP 93/44; PULSE 78; RESP 19
[2018-12-29 04:00] VITALS: BP 88/49; PULSE 78; RESP 18
[2018-12-29] MEDS: IBUPROFEN 600 MG TAB PO SCH ×4 (05:41→23:03)
[2018-12-29 08:00] VITALS: BP 105/57; PULSE 85; RESP 18
--- NOTE | 2018-12-29 08:33 | DS ---
Date/Time of Note Date/Time of Note DATE: 12/29/18 TIME: 08:32 Obstetrical Discharge Record Final Diagnosis Final Diagnosis: Term delivered Vaginal Delivery Obstetrical Delivery: Spontaneous Complications Augmentation: Yes Induction: No Rupture of Membranes: No Condition on Discharge Physical Assessment Voiding: Yes Bowel Movement: Yes Breast: Soft, non-tender, Filling Fundus: Firm Abdomen and Incision: soft, not tender, fundus is firm at umbilicus Calf Tenderness: No Patient Condition: Good WANDER MONREAL MD Dec 29, 2018 08:33
[2018-12-29] MEDS: SENNA/DOCUSATE NA (8.6MG/50MG) TAB PO SCH (12:23)
[2018-12-29 16:00] VITALS: BP 107/59; PULSE 92; RESP 18
[2018-12-29 21:00] VITALS: BP 117/72; PULSE 90; RESP 18
[2018-12-30 04:00] VITALS: BP 104/58; PULSE 83; RESP 18
[2018-12-30] MEDS: IBUPROFEN 600 MG TAB PO SCH ×2 (06:17→12:00)
[2018-12-30] MEDS ORDERED: DIPHTH/TET/ACEL PERTUSS (ADULT) 0.5 ML VIAL IM* ONE (09:00)
[2018-12-30] MEDS: SENNA/DOCUSATE NA (8.6MG/50MG) TAB PO SCH (09:00)
--- NOTE | 2018-12-31 15:18 | DELSUM ---
Delivery Summary A-C Datetime Report Generated by CPN: 12/31/2018 15:18 DELIVERY PERSONNEL Pen Or Pencil Assembly Machine Operator: Fistell, Indra MATERNAL INFORMATION Delivery Anesthesia: Epidural Medications in Delivery: PITOCIN 30 UNITS IN 500 ML L/R INJ IV BOLUS Delivery QBL (ml): 100 Placenta Cultured: No Maternal Complications: Abruptio Placenta LABOR SUMMARY EDC: 12/29/2018 00:00 No. Babies in Womb: 1 Attempted: No Labor Anesthesia: Epidural LABOR INFORMATION Reason for Induction: Not Applicable Onset of Labor: 12/27/2018 13:00 Complete Dilatation: 12/28/2018 02:45 Oxytocin: Augmentation Group B Beta Strep: Negative Antibiotics # of Doses: 0 Steroids Given: None Reason Steroids Not Administered: Not Applicable MEMBRANES Membranes Rupture Method: Artificial Rupture of Membranes: 12/27/2018 02:36 Length of Rupture (hr): 24.33 Amniotic Fluid Color: Bloody Amniotic Fluid Amount: Small Amniotic Fluid Odor: None STAGES OF LABOR Stage 1 hr: 13 Stage 1 min: 45 Stage 2 hr: 0 Stage 2 min: 11 Stage 3 hr: 0 Stage 3 min: 2 Total Time in Labor hr: 13 Total Time in Labor min: 58 VAGINAL DELIVERY Episiotomy: None Laceration Extension: N/A Laceration Type: None Laceration Repair: Not Applicable Initial Vag Sponge Count: 10 Final Vag Sponge Count: 10 Initial Vag Sharps Count: 1 Final Vag Sharps Count: 1 Sponge Count Correct: Yes Sharps Count Correct: Yes BABY A INFORMATION Infant Delivery Date/Time: 12/28/2018 02:56 Method of Delivery: Vaginal Born in Route : No : N/A Forceps: N/A Vacuum Extraction: Successful Shoulder Dystocia : N/A SHOULDER DYSTOCIA BABY A Infant Delivery Date/Time: 12/28/2018 02:56 PRESENTATION/POSITION BABY A Presentation: Cephalic Cephalic Presentation: Vertex Vertex Position: Left Occipital Transverse Breech Presentation: N/A PLACENTA INFORMATION BABY A Placenta Delivery Time : 12/28/2018 02:58 Placenta Method of Delivery: Spontaneous Placenta Status: Delivered SCORES BABY A Heart Rate 1 min: >100 bpm Resp Effort 1 min: Good Cry Reflex Irritability 1 min: Cough/Sneeze/Pulls Away Muscle Tone 1 min: Active Motion Color 1 min: Blue/Pale Resuscitation Effort 1 min: Tactile Stimulation SCORE 1 MIN: 8 Heart Rate 5 min: >100 bpm Resp Effort 5 min: Good Cry Reflex Irritability 5 min: Cough/Sneeze/Pulls Away Muscle Tone 5 min: Active Motion Color 5 min: Body [place], Extremit Blue Resuscitation Effort 5 min: N/A SCORE 5 MIN: 9 INFORMATION BABY A Gestational Age at Delivery: 39.6 Gestational Status: Full Term- 39- 40.6 Weeks Infant Outcome : Liveborn Infant Condition : Stable Infant Sex: Male IDENTIFICATION/MEDS BABY A ID Band Number: [id number] ID Band Location: Right Leg; Left Arm Sensor Applied: Yes Sensor Number: [id number] Sensor Location : Cord Clamp Vitamin K Given : Not Given Erythromycin Given: Not Given WEIGHT/LENGTH BABY A Birthweight (gm): 3310 Weight (lb): 7 Weight (oz): 5 Infant Length (in): 19.25 Infant Length (cm): 48.90 CORD INFORMATION BABY A No. Cord Vessels: 3 Nuchal Cord : N/A Cord Blood Taken: Yes Infant Suction: Mouth; Nose ASSESSMENT BABY A Infant Complications: Extended Bradycardi; Multiple Variable Decels Physical Findings at Delivery: Within Normal Limits Infant Respirations: Appears Normal Laborer Adjustable Steel Joist/ALS Called : Yes Infant Care By: ADELITA VENTURA RT/AGUSTIN VILLATORO Transferred To: Remains with Mother
== END 2018-12-30 14:20 | disposition home or self-care (01) | DRG 998 ==
LOC: OBT 12:34 → L-D 12:34 → OBT 14:05 → L-D 14:05 → PP1 12-28 06:01
PROVIDERS: ADMIT Specialist; ATTEND Specialist
PROC: 10D07Z8 Extraction of Products of Conception, Other, Via Natural or Artificial Opening (ICD-10-PCS; principal; 2018-12-27)
PROC: 3E033VJ Introduction of Other Hormone into Peripheral Vein, Percutaneous Approach (ICD-10-PCS; 2018-12-27)
DX: O76 Abnormality in fetal heart rate and rhythm complicating labor and delivery (principal); O66.5 Attempted application of vacuum extractor and forceps; Z3A.39 39 weeks gestation of pregnancy
CPT/HCPCS: 76818; 85025; 85610; 85730; 86592; 86850; 86900; 86901; 87340; 88307; 99464; G0463; J2405; J2590; J3010; J7120